=== PATIENT | male | born 1960 | race Caucasian/White ===

== ENCOUNTER 2019-01-16 17:04 | Emergency (ER) | payer BC ==
--- OUTSIDE RECORDS SUMMARY | 2019-01-16 17:14 | XMS REPORT | Continuity of Care Document ---
:1960 External Reference #:[id number] Author Name Xavier Cruz M.D. Address [address] [facility] [place] [address] Care Team Providers Name Role Phone Marjorie Yun MD Care Team Information Shells Inspector Unavailable Marjorie Yun MD Primary Care Physician Unavailable Payers Date Identification Numbers Payment Provider Subscriber Policy Number: [id number] [facility] José Miguel Sosa III PayID: [id number] [address] [address] [place] [address] Expires: 2016 Policy Number: [id number] [facility] Brenda Sosa PayID: [id number] [address] [place] [address] PayID: [id number] [facility] José Miguel Sosa III Psych/RCF/Eye/[facility] [address] [place] [address] Effective: 2000 Policy Number: [id number] Cornell Sosa Expires: 2013 Group Number: [id number] [address] [address] Group Name: [facility] [place] [address] PayID: [id number] Advance Directives Description No Information Available Problems Date Description Provider Status Onset: 08/04/2017 Raised prostate specific antigen Navjot Sterling M.D. Active Onset: 09/05/2017 Malignant tumor of prostate Navjot Sterling M.D. Active Onset: 12/06/2017 Stress incontinence after Navjot Sterling M.D. Active prostatectomy Onset: 12/06/2017 Impotence of organic origin Navjot Sterling M.D. 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 Right-handed Tobacco Use Start: Unknown Current Cigarette Smoker 1 1/2 Packs Daily Cigarette Use Pack Years - 30 ETOH Use Currently consumes alcohol Tobacco Use Start: Unknown Yes Recreational Drug Use Denies Drug Use Tobacco Use Start: Unknown Patient is a current 1 1/2 ppd x 30 yrs smoker, smokes every day Smoking Status Reviewed: 07/21/17 Patient is a current 1 1/2 ppd x 30 yrs smoker, smokes every day Allergies, Adverse Reactions, Alerts Date Description Reaction Status Severity Comments 10/01/2010 Bee Sting Active 10/01/2010 Flu Virus Vaccine Active cellulitis 06/23/2010 NKDA Inactive Medications Medication Date Status Form Strength Qnty SIG Indications Ordering Provider Metformin HCL Active Tablets 500mg 60tab 1 po bid Unknown /0000 s Losartan Active Tablets 100mg Once a day Unknown Potassium /0000 Hydrochlorothiazi Active Tablets 25mg Once a day Unknown de /0000 Amitriptyline HCL 00 Active Tablets 100mg 1 by mouth Unknown /0000 every night at bedtime Atorvastatin Active Tablets 20mg 1 by mouth Unknown Calcium /0000 every day Sulfasalazine Active Tablets 500mg Unknown /0000 Omeprazole [address] 20mg 1 by mouth Unknown /0000 every day Sildenafil 01/10 Hx Tablets 50mg 14tab 1 to 2 N52.31 Nelson, Citrate s pills as Aleena Morfin M.D. 11/27 intercours e 12 Hour 10/26 Hx Tablets ER 120mg ;.'isa, Decongestant 12HR Aleena Dyson M.D. 10/26 vira vira cheney Ciprofloxacin HCL 08/04 Hx Tablets 500mg 6tabs 1 by mouth R97.20 Nelson twice a Navjot, - day, start M.D. before procedure Enema 08/04 Hx Enema 7-19GM/11 133ml Morning of R97.20 Nelson 8ML procedure. Navjot, - M.D. 08/29 Cyclobenzaprine 01/16 Hx Tablets 10mg 40tab 1 by mouth [place], s three Teodoro, - times a M.D. needed for muscle spasms. use caution with alcohol, driving, working [place] Hx Capsules ER 250mg 2 tabs qid / - 01/16 Lyrica Hx Capsules 150mg po tid - 01/16 Tramadol HCL Hx Unknown / - 01/[address] 40mg 30cap 1 po qd Unknown / s - 01/16 Cozaar Hx Tablets 100mg 1 po qd - 01/16 Baby Aspirin Hx Chewtabs 81mg 1 po qd / - 12/14 Promethazine-Code Hx Syrup 6.25-10mg Unknown ine /0000 /5ML - 08/25 Bactrim DS Hx Tablets 800-160mg / - 08/25 Magnesium Oxide Hx Capsules 400mg Once a day - 11/27 Debrox Hx Solution 6.5% 5 drops Unknown / twice a - day x 4 10/26 days in ear only Proair HFA Hx Aerosol 108(90Bas As needed Unknown /0000 e) - mcg/Act 12/14 Duexis Hx Tablets 800-26.6m Unknown / g - 10/26 Simvastatin 00 Hx Tablets 40mg Once a day - 12/[address] 40mg Once a day / - 11/27 Amitriptyline HCL Hx Tablets 100mg Once a day Unknown / - 01/10 Azulfidine Hx Tablets 500mg Once a day - 11/27 Calcium 600+D Hx Tablets 600-400mg Unknown -Unit - 12/14 Fluticasone Hx Suspension 50mcg/Act 1 spray to Unknown each nare - every day 12/14 Benzonatate Hx Capsules 200mg 1 tab by mouth - three 12/14 times day Medications Administered in Office Medication Date Status Form Strength Qnty SIG Indications Ordering Provider Methylprednisolone 01/16 Administered Injection braxton Osorio Keila (Depomedrol) 80mg S., RPA injection Immunizations Description No Information Available Vital Signs Date Vital Result Comment 01/04/2019 10:31am BP Systolic 151 mmHg BP Diastolic 84 mmHg Heart Rate 64 /min Height 72 inches 6'0" Weight 209.00 lb BMI (Body Mass Index) 28.3 kg/m2 BSA (Body Surface Area) 2.17 m2 [place] body weight in kilograms 81 kg O2 % BldC Oximetry 96 % 12/14/2018 1:34pm BP Systolic 141 mmHg BP Diastolic 77 mmHg Heart Rate 68 /min Height 72 inches 6'0" Weight 213.00 lb BMI (Body Mass Index) 28.9 kg/m2 BSA (Body Surface Area) 2.19 m2 [place] body weight in kilograms 81 kg O2 % BldC Oximetry 95 % 04/18/2018 3:25pm BP Systolic 122 mmHg BP Diastolic 83 mmHg Body Temperature 98.0 F Heart Rate 47 /min Respiratory Rate 18 /min Height 72 inches 6'0" Weight 202.00 lb BMI (Body Mass Index) 27.4 kg/m2 BSA (Body Surface Area) 2.14 m2 [place] body weight in kilograms 81 kg O2 % BldC Oximetry 100 % Pain Level 0 01/10/2018 3:52pm BP Systolic 118 mmHg BP Diastolic 80 mmHg Body Temperature 97.7 F Heart Rate 63 /min Respiratory Rate 18 /min Height 72 inches 6'0" Weight 213.38 lb BMI (Body Mass Index) 28.9 kg/m2 BSA (Body Surface Area) 2.19 m2 [place] body weight in kilograms 81 kg O2 % BldC Oximetry 95 % Pain Level 6 Abd pain 12/06/2017 11:03am BP Systolic 126 mmHg BP Diastolic 77 mmHg Body Temperature 97.8 F Heart Rate 62 /min Respiratory Rate 18 /min Height 72 inches 6'0" Weight 217.00 lb BMI (Body Mass Index) 29.4 kg/m2 BSA (Body Surface Area) 2.21 m2 [place] body weight in kilograms 81 kg O2 % BldC Oximetry 97 % Pain Level 0 11/09/2017 8:51am BP Systolic 128 mmHg BP Diastolic 85 mmHg Body Temperature 96.9 F Heart Rate 84 /min Respiratory Rate 18 /min Height 72 inches 6'0" Weight 206.00 lb BMI (Body Mass Index) 27.9 kg/m2 BSA (Body Surface Area) 2.16 m2 [place] body weight in kilograms 81 kg O2 % BldC Oximetry 98 % Pain Level 5 Discomfort from hawkins catheter 10/26/2017 1:44pm Height 72 inches 6'0" Weight 201.38 lb BMI (Body Mass Index) 27.3 kg/m2 BSA (Body Surface Area) 2.14 m2 [place] body weight in kilograms 81 kg 10/26/2017 1:33pm BP Systolic 126 mmHg BP Diastolic 79 mmHg Body Temperature 97.8 F 36.6C Heart Rate 76 /min Respiratory Rate 18 /min Height 72 inches 6'0" [place] body weight in kilograms 81 kg O2 % BldC Oximetry 97 % Pain Level 0 09/05/2017 3:53pm BP Systolic 123 mmHg BP Diastolic 73 mmHg Body Temperature 96.9 F Heart Rate 65 /min Respiratory Rate 16 /min Height 72 inches 6'0" Weight 202.38 lb BMI (Body Mass Index) 27.4 kg/m2 BSA (Body Surface Area) 2.14 m2 [place] body weight in kilograms 81 kg O2 % BldC Oximetry 97 % Pain Level 0 08/29/2017 12:18pm BP Systolic 132 mmHg BP Diastolic 87 mmHg Body Temperature 97.2 F Heart Rate 65 /min Respiratory Rate 16 /min O2 % BldC Oximetry 97 % Pain Level 0 08/25/2017 4:01pm BP Systolic 120 mmHg BP Diastolic 77 mmHg Heart Rate 102 /min Respiratory Rate 18 /min O2 % BldC Oximetry 95 % 08/25/2017 3:25pm BP Systolic 124 mmHg BP Diastolic 71 mmHg Body Temperature 97.7 F Heart Rate 62 /min Respiratory Rate 18 /min Height 72.5 inches 6'0.50" Weight 201.50 lb BMI (Body Mass Index) 26.9 kg/m2 BSA (Body Surface Area) 2.15 m2 [place] body weight in kilograms 82 kg O2 % BldC Oximetry 98 % Pain Level 6 Left shoulder 08/04/2017 2:09pm BP Systolic 136 mmHg BP Diastolic 75 mmHg Body Temperature 97.0 F 36.1 Heart Rate 69 /min Respiratory Rate 22 /min Height 72.5 inches 6'0.50" Weight 204.00 lb BMI (Body Mass Index) 27.3 kg/m2 BSA (Body Surface Area) 2.16 m2 [place] body weight in kilograms 82 kg O2 % BldC Oximetry 94 % 01/16/2015 10:29am BP Systolic Sitting Right Arm 149 mmHg BP Diastolic Sitting Right Arm 83 mmHg Heart Rate 81 /min Height 72.5 inches 6'0.50" Weight 240.00 lb BMI (Body Mass Index) 32.1 kg/m2 BSA (Body Surface Area) 2.31 m2 05/14/2010 9:41am Height 72 inches 6'0" Weight 240.00 lb BMI (Body Mass Index) 32.5 kg/m2 Results Test Date Facility Test Result H/L Range Note Laboratory test 04/18/2018 [facility] Prostate < 0.01 ng/mL < 4.0 1, [address] [place] [address] Antigen [phone] Laboratory test 12/06/2017 [facility] Prostate < 0.01 ng/mL < 4.0 3, [address] [place] [address] Antigen [phone] Laboratory test 11/11/2017 [facility] Prostate 0.03 ng/mL < 4.0 [address] [place] [address] Antigen [phone] Laboratory test 10/14/2017 [facility] Glucose BldC 114 mg/dL High 70- 105 finding Glucomtr-mCnc Laboratory test 10/14/2017 [facility] Glucose BldC 126 mg/dL High 70- 105 finding Glucomtr-mCnc Complete Blood 10/14/2017 [facility] WBC Num Bld 9.1 10*3/uL 4-10 Count Auto RBC Num Bld Auto 4.42 10*6/uL Low 4.6-6.1 Hgb Bld-mCnc 14.4 g/dL 13.5-18 Hct VFr Bld Auto 41.7 % 41-53 MCV RBC Auto 94.4 fL 80-96 MCH RBC Qn Auto 32.6 pg 27-33 MCHC RBC Auto-mCnc 34.5 g/dL 32.0-36.0 RDW RBC Auto-Rto 13.4 % 11.5-14.5 Platelet Num Bld Auto 177 10*3/uL 150-400 Basic Metabolic Panel 10/14/2017 [facility] Hco3 Ser-sCnc 26 mmol/L 22 -29 Chloride SerPl-sCnc 100 mmol/L 98-107 Creat SerPl-mCnc 0.71 mg/dL 0.5-1.2 Glucose SerPl-mCnc 140 mg/dL 70-140 Potassium SerPl-sCnc 4.7 mmol/L 3.5-5.1 Sodium SerPl-sCnc 135 mmol/L Low 136-145 BUN SerPl-mCnc 11 mg/dL 6-20 Anion Gap3 SerPl-sCnc 9 mmol/L 8-15 Osmolality SerPl Calc 282 mosm/kg 275-300 Creat/Urea nit SerPl 15 Calcium SerPl-mCnc 8.6 mg/dL 8.6-10.0 GFR/Bsa pred.non black SerPl MDRD-ArVRat >90 mL/min/1.73m2 >60 GFR/Bsa pred.black SerPl MDRD-ArVRat >90 mL/min/1.73m2 >60 Laboratory test 10/14/2017 [facility] Magnesium 1.8 mg/dL 1.6-2.6 finding SerPl-mCnc Phosphate SerPl-mCnc 4.0 mg/dL 2.5-4.5 Creat Fld-mCnc 0.7 mg/dL Laboratory test 10/14/2017 [facility] Glucose BldC 143 mg/dL High 70- 105 finding Glucomtr-mCnc Laboratory test 10/13/2017 [facility] Glucose BldC 107 mg/dL High 70- 105 finding Glucomtr-mCnc Surgical Tissue 10/13/2017 [facility] Surgical Pathology Surgical 6 Patholo <SEE NOTE> Laboratory test 10/13/2017 [facility] Magnesium 1.8 mg/dL 1.6-2.6 finding SerPl-mCnc Phosphate SerPl-mCnc 4.7 mg/dL High 2.7-4.5 Basic Metabolic Panel 10/13/2017 [facility] Hco3 Ser-sCnc 21 mmol/L Low 22-29 Chloride SerPl-sCnc 99 mmol/L 96-108 Creat SerPl-mCnc 1.03 mg/dL 0.5-1.2 Glucose SerPl-mCnc 180 mg/dL High 65-110 Potassium SerPl-sCnc 4.8 mmol/L 3.3-5.1 Sodium SerPl-sCnc 137 mmol/L 133-145 BUN SerPl-mCnc 14 mg/dL 6-20 Anion Gap3 SerPl-sCnc 17 mmol/L High 8-15 Osmolality SerPl Calc 289 mosm/kg 275-300 Creat/Urea nit SerPl 14 Calcium SerPl-mCnc 8.8 mg/dL 8.4-10.2 GFR/Bsa pred.non black SerPl MDRD-ArVRat 79 mL/min/1.73m2 >60 GFR/Bsa pred.black SerPl MDRD-ArVRat >90 mL/min/1.73m2 >60 CBC + Diff, Plat 10/13/2017 [facility] WBC Num Bld Auto 14.5 10*3/uL High 4-10 Count RBC Num Bld Auto 4.71 10*6/uL 4.6-6.1 Hgb Bld-mCnc 15.2 g/dL 13.5-18 Hct VFr Bld Auto 44.5 % 41-53 MCV RBC Auto 94.4 fL 80-96 MCH RBC Qn Auto 32.3 pg 27-33 MCHC RBC Auto-mCnc 34.3 g/dL 32.0-36.0 RDW RBC Auto-Rto 13.4 % 11.5-14.5 Platelet Num Bld Auto 198 10*3/uL 150-400 Differential method Bld Automated Diff Neutrophils/leuk NFr Bld Auto 88 % High 33-73 Lymphocytes/leuk NFr Bld Auto 8 % Low 13-52 Monocytes/leuk NFr Bld Auto 4 % 0-11 Eosinophil/leuk NFr Bld Auto 0 % 0-5 Basophils/leuk NFr Bld Auto 0 % 0-2 Neutrophils Num Bld Auto 12.69 10*3/uL High 1.8-7.0 Lymphocytes Num Bld Auto 1.15 10*3/uL Low 1.2-4.0 Monocytes Num Bld Auto 0.57 10*3/uL 0-0.8 Eosinophil Num Bld Auto 0.03 10*3/uL 0-0.5 Basophils Num Bld Auto 0.06 10*3/uL 0-0.2 nRBC/100 WBC Bld Auto-Rto 0 /100{WBCs} 0-0 Laboratory test 10/13/2017 [facility] Glucose BldC 224 mg/dL High 70- 105 finding Glucomtr-mCnc Laboratory test 10/13/2017 [facility] Glucose BldC 193 mg/dL High 70- 105 finding Glucomtr-mCnc Urin Clean Catch 09/28/2017 [facility] Microorganism XXX No growth 7 Cul Cult (quali <SEE NOTE> Urinalysis 09/28/2017 [facility] Color Ur Yellow Complete Clarity Ur Clear Sp Gr Ur Refract.auto 1.006 1.003-1.030 pH Ur Strip.auto 5.0 5.0-8.0 Prot Ur Strip.auto-mCnc Negative mg/dL <10 Glucose Ur Strip.auto-mCnc Negative mg/dL Negative Ketones Ur Strip.auto-mCnc Negative mg/dL Negative Bilirub Ur Ql Strip.auto Negative Negative Hgb Ur Ql Strip.auto Negative Negative Leukocyte esterase Ur Ql Strip.auto Negative Joesph/uL Negative Nitrite Ur Ql Strip.auto Negative Negative WBC Num/area UrnS Auto 1 /HPF 0-5 Type And Screen 09/28/2017 [facility] Abo + Rh Bld A POS 8 Bld gp Ab Scn SerPl Ql NEG Basic Metabolic Panel 09/28/2017 [facility] Hco3 Ser-sCnc 24 mmol/L 22 -29 Chloride SerPl-sCnc 95 mmol/L Low 96-108 Creat SerPl-mCnc 0.86 mg/dL 0.5-1.2 Glucose SerPl-mCnc 125 mg/dL High 65-110 Potassium SerPl-sCnc 3.9 mmol/L 3.3-5.1 Sodium SerPl-sCnc 133 mmol/L 133-145 BUN SerPl-mCnc 15 mg/dL 6-20 Anion Gap3 SerPl-sCnc 14 mmol/L 8-15 Osmolality SerPl Calc 278 mosm/kg 275-300 Creat/Urea nit SerPl 17 Calcium SerPl-mCnc 10.3 mg/dL High 8.4-10.2 GFR/Bsa pred.non black SerPl MDRD-ArVRat >90 mL/min/1.73m2 >60 GFR/Bsa pred.black SerPl MDRD-ArVRat >90 mL/min/1.73m2 >60 Prothrombin Time 09/28/2017 [facility] Prothrombin time 11.6 s Low 12.5 -14.9 Inr PPP 0.85 Laboratory test 09/28/2017 [facility] aPTT Bld 24.9 s 24.0-34.0 finding Complete Blood Count 09/28/2017 [facility] WBC Num Bld 8.4 10*3/uL 4- 10 Auto RBC Num Bld Auto 5.58 10*6/uL 4.6-6.1 Hgb Bld-mCnc 18.0 g/dL 13.5-18 Hct VFr Bld Auto 51.6 % 41-53 MCV RBC Auto 92.4 fL 80-96 MCH RBC Qn Auto 32.2 pg 27-33 MCHC RBC Auto-mCnc 34.8 g/dL 32.0-36.0 RDW RBC Auto-Rto 13.4 % 11.5-14.5 Platelet Num Bld Auto 236 10*3/uL 150-400 Surgical 09/06/2017 [facility] Surgical Surgical 9 Pathology Consult Pathology Patholo <SEE Consult NOTE> Laboratory test 08/06/2017 [facility] Prostate 9.90 ng/mL < 4.0 10, [address] [place] [address] Antigen [phone] 1 C61 N52.31 N39.3 2 THIS ASSAY IS NOT INTENDED A CANCER SCREENING TEST The concentration of PSA in a given specimen, determined with assays from different manufacturers, can vary due to differences in assay methods and reagent specificity. Values obtained from different assay methods cannot be used interchangeably. Method: Siemens [employer] [place] Chemiluminescent immunoassay. 3 C61 4 THIS ASSAY IS NOT INTENDED A CANCER SCREENING TEST The concentration of PSA in a given specimen, determined with assays from different manufacturers, can vary due to differences in assay methods and reagent specificity. Values obtained from different assay methods cannot be used interchangeably. Method: Siemens Dimension [place] Chemiluminescent immunoassay. 5 THIS ASSAY IS NOT INTENDED A CANCER SCREENING TEST The concentration of PSA in a given specimen, determined with assays from different manufacturers, can vary due to differences in assay methods and reagent specificity. Values obtained from different assay methods cannot be used interchangeably. Method: Siemens Dimension [place] Chemiluminescent immunoassay. 6 Surgical Pathology Report * Amended * Name: JOSÉ MIGUEL SOSA Collection Date: 10/13/2017 00:00 Received Date: 10/13/2017 15:48 Physician(s): NAVJOT STERLING MAHMOUD Specimen(s) Received A: Bladder margin F.S. B: Apical prostatic margin F.S. C: Anterior prostatic fat D: Left seminal vesicle and vas deferens E: Right obturator lymph nodes F: Right external iliac artery G: Left obturator H: Prostate with seminal vesicles Clinical History Prostate cancer. Diagnosis A) SOFT TISSUE, BLADDER MARGIN, EXCISION: NEGATIVE FOR TUMOR. B) SOFT TISSUE, APICAL PROSTATIC MARGIN, EXCISION: NEGATIVE FOR TUMOR. C) SOFT TISSUE, ANTERIOR PROSTATIC FAT, EXCISION: NEGATIVE FOR TUMOR. D) LEFT SEMINAL VESICLE AND VAS DEFERENS, EXCISION: NEGATIVE FOR TUMOR. E) LYMPH NODES (3), RIGHT OBTURATOR, EXCISION: NEGATIVE FOR TUMOR. F) LYMPH NODES (3), RIGHT EXTERNAL ILIAC, EXCISION: NEGATIVE FOR TUMOR. G) LYMPH NODES (5), LEFT OBTURATOR, EXCISION: NEGATIVE FOR TUMOR. H) PROSTATE, PROSTATECTOMY: ADENOCARCINOMA BETTY SCORE (GRADE GROUP): 4+3=7, grade group 3. SITE OF MAIN TUMOR: Left anterior. SIZE OF LARGEST FOCUS: 0.8 cm. PERCENT OF PROSTATE INVOLVED BY TUMOR: Approximately 25%. BILATERAL TUMOR: Present. EXTRACAPSULAR EXTENSION: Not identified. BLADDER NECK INVASION: Not identified. MARGINS: Positive SITE AND EXTENT OF POSITIVE MARGIN: Positive focus less than 1MM, right apex SEMINAL VESICLE INVOLVEMENT: Not identified. PERINEURAL INVASION: Present. LYMPHATIC SPACE INVASION: Not identified. pT2c N0. /deonna Olivia Young MD ; Resident Pathologist Electronically Signed By Venkatesh Estrada MD,PhD, Attending Pathologist 11/01/2017 13:19:15 The attending pathologist named above attests that he/she has personally reviewed the relevant preparation(s) for the specimen, performed microscopic examination when indicated, and rendered the final diagnosis. Unless 'gross-only' is specified, the final diagnosis is based on a microscopic examination of sales representative meats sections of tissue. Intraoperative Consultation FSA) Bladder margin, biopsy: Fibromuscular tissue no prostatic glands identified. FSB) Apical prostatic margin, biopsy: Focal prostatic glands present. Per Dr. Hunt on 10/13/2017/ //[facility] [place] The attending pathologist named above attests that he/she has personally examined the frozen section preparation and rendered the diagnosis. Gross Description The specimen is received in eight parts. Part A is received fresh for frozen labeled with the patient's name "José Miguel Sosa" and "bladder margin check for prostate gland". It consists of a heavily cauterized fragment of soft tissue measuring 0.7 x 0.4 x 0.3 cm. The specimen is entirely submitted for frozen as FSA1 and the frozen remainder is submitted in cassettes A1. Part B is received fresh for frozen labeled with the patient's name "José Miguel Sosa" and "apical margin looking for prostatic glands". It consists of a fragment of red soft tissue measuring 0.3 x 0.3 x 0.2 cm. The specimen is entirely submitted for frozen as FSB1 and the frozen remainder is submitted as FSB1 and the frozen remainder in submitted in cassettes B1. /[facility] [place] Parts C-H were received on 10/14/2017. Part C is received in formalin labeled with the patient's name "José Miguel Sosa" and "anterior prostatic fat". It consists of a portion of yellow lobulated soft tissue measuring 2.5 x 2.0 x 0.4 cm. The specimen is totally submitted in one cassette. Part D is received in formalin labeled with the patient's name "José Miguel Sosa" and "left seminal vesicle and vas". It consists of a andrews lobulated seminal vesicle measuring 4.0 x 1.5 x 0.8 cm with an attached segment of tubular tissue, vas deferens measuring 5.8 x 0.5 cm. Cut surfaces are unremarkable. In addition a segment of tubular tissue is received measuring 3.0 x 0.5 cm. Customer Success Advocate sections are submitted to include a cross section of each tubular structure and sales representative meats of seminal vesicle in one cassette. Part E is received in formalin labeled with the patient's name "José Miguel Sosa" and "right obturator lymph node". It consists of multiple fragments of yellow lobulated soft tissue measuring 3.6 x 3.0 x 1.0 cm. Three possible nodes are identified measuring up to 2.8 cm in greatest dimension. The largest is bisected and a rubbery cut surface. The marybeth tissue is entirely submitted as follows: E1 -two whole probable nodes E2 -one entire bisected node Part F is received in formalin labeled with the patient's name "José Miguel Sosa" and "right external iliac artery". It consists of multiple fragments of yellow-red soft tissue measuring 4.0 x 3.0 x 0.8 cm. Three probable nodes are identified measuring up to 1.5 cm in greatest dimension. The marybeth tissue is entirely submitted as follows: F1 -two whole nodes F2 -one bisected node Part G is received in formalin labeled with the patient's name "José Miguel Sosa" and "left obturator". It consists of an aggregate of yellow lobulated soft tissue measuring 4.2 x 3.0 x 1.0 cm. Multiple possible nodes are identified that measure up to 3.0 cm in greatest dimension. The marybeth tissue is entirely submitted as follows: G1 -multiple whole possible nodes G2,3 -one entire node Part H is received in formalin labeled with the patient's name "José Miguel Ssoa" and "prostate with seminal vesicle". It consists of a prostate measuring 5.0 x 4.0 x 3.7 cm and weighing 37.0 grams. There is a single seminal vesicle attached to the prostate measuring 3.5 x 1.0 cm. The surfaces are moderately cauterized and shaggy. The right prostate, the left blue, and the anterior green. The specimen is serially sectioned to reveal a pink rubbery symmetric cut surface. There is a single vague area of pallor along the anterior middle aspect that measures approximately 1.0 cm in greatest dimension. The seminal vesicle has a lobulated, otherwise unremarkable cut surface. A vas deferens is not identified. Customer Success Advocate sections are submitted as follows: H1 -right apex H2 -left apex H3,4 -bisected level 1 (H3 right, H4 left) H5-8 quadrisected level 2 (H5 right anterior, H6 right posterior, H7 left anterior, H8 - left posterior; H5 and H7 to include area of pallor) H9-12 -quadrisected level 3 (H9 right anterior, H10 right posterior, H11 left anterior, H12 - left posterior; H9 and H11 to include remainder of area of pallor) H13-16 -quadrisected level 4 (H13 right anterior, H14 right posterior, H15 left anterior, H16 - left posterior) H17-20 -quadrisected level 5 (H17 right anterior, H18 right posterior, H19 left anterior, H20 - left posterior) H21-24 -quadrisected level 6 (H21 right anterior, H22 right posterior, H23 left anterior, H24 - left posterior) H25,26 -right base H27,28 -left base H29 -right posterior prostate with seminal vesicle H30 -left posterior prostate ND/pws Amendments Amended: 11/01/2017 by Kacie May Reason: Typographical Error D) NEAGTIVE FOR TUMOR. Change to: D) NEGATIVE FOR TUMOR. E) NEAGTIVE FOR TUMOR. Change to: E) NEGATIVE FOR TUMOR. H) BLADDER NECK INVASION: . Change to: H) BLADDER NECK INVASION: Not identified. /[facility] [place] Previous Signout Date: 10/18/2017 This report may include one or more immunohistochemical stain results that use analyte specific reagents. All positive and negative controls have been reviewed by the attending pathologist and are satisfactory. The tests were developed and their performance characteristics determined by [facility] Pathology department. They have not been cleared or approved by the [place] Food and Drug Administration. The FDA has determined that such clearance or approval is not necessary. 7 No growth (qualifier value) 8 DOS 10/13 9 Surgical Pathology Report Name: JOSÉ MIGUEL LE Collection Date: 09/06/2017 00:00 Received Date: 09/06/2017 15:05 Physician(s): NAVJOT STERLING MAHMOUD Copy To: CHERYL PAN Specimen(s) Received A: Slides received for consultation Clinical History Elevated PSA, slides for second opinion. Diagnosis OUTSIDE CASE [facility] [place] [id number], PARTS A - F, 08/29/2017. A) PROSTATE, LEFT APEX, CORE BIOPSY: ADENOCARCINOMA, BETTY SCORE 6 (3 + 3), INVOLVING APPROXIMATELY 15% OF ONE OF TWO CORES (GRADE GROUP 1). B) PROSTATE, LEFT MID, CORE BIOPSY: ADENOCARCINOMA, BETTY SCORE 6 (3 + 3), INVOLVING APPROXIMATELY 30% OF ONE OF TWO CORES (GRADE GROUP 1). C) PROSTATE, LEFT BASE, CORE BIOPSY: BENIGN PROSTATIC TISSUE. D) PROSTATE, RIGHT APEX, CORE BIOPSY: BENIGN PROSTATIC TISSUE. E) PROSTATE, RIGHT MID, CORE BIOSPY: ADENOCARCINOMA, BETTY SCORE 7 (3 + 4), INVOLVING APPROXIMATELY 20% OF ONE OF TWO CORES (GRADE GROUP 2, 10% PATTERN 4). F) PROSTATE, RIGHT BASE, CORE BIOPSY: ADENOCARCINOMA, BETTY SCORE 7 (3 + 4), INVOLVING APPROXIMATELY 60% OF ONE OF TWO CORES, (GRADE GROUP 2, 10% PATTERN 4). /deonna Electronically Signed By Luis Alfredo Holley M.D., Attending Pathologist 09/08/2017 10:21:42 Unless 'gross-only' is specified, the final diagnosis is based on a microscopic examination of sales representative meats sections of tissue. Gross Description Received from [facility] in [place], [place], are 12 H and E stained slides labeled [id number], with the corresponding pathology report. /jrs This report may include one or more immunohistochemical stain results that use analyte specific reagents. All positive and negative controls have been reviewed by the attending pathologist and are satisfactory. The tests were developed and their performance characteristics determined by [facility] Pathology department. They have not been cleared or approved by the US Food and Drug Administration. The FDA has determined that such clearance or approval is not necessary. 10 R97.20 11 THIS ASSAY IS NOT INTENDED A CANCER SCREENING TEST The concentration of PSA in a given specimen, determined with assays from different manufacturers, can vary due to differences in assay methods and reagent specificity. Values obtained from different assay methods cannot be used interchangeably. Method: Vyter[employer] [place] Chemiluminescent immunoassay. Procedures Date Code Description Status 12/26/2018 17275 Implant Of Mesh Or Prothesis For Incisional Hernia Repair Completed 12/26/2018 29688 Repair inisial incisional or ventral hernia; reducible Completed 12/06/2017 44375 Measurement Post Voiding Residual Urine By Completed Ultrasound,Non-Imaging 12/06/2017 57459 complex uroflowmetry electronic Completed 11/09/2017 81534 Irrigation Of Bladder Completed 10/26/2017 34778 Irrigation Of Bladder Completed 09/05/2017 77283 Measurement Post Voiding Residual Urine By Completed Ultrasound,Non-Imaging 08/29/2017 10843 Biopsy Prostate Needle Or Punch Completed 07/21/2017 22590 Eye Exam New Patient Comprehensive Completed 04/21/2016 32589 Bronchospasm Provocation Evaluation Multi Spirometric Completed Determinati 04/21/2016 40022 Spirometry Completed 02/08/2016 90875 EKG Interpretation And Report Only Completed 01/16/2015 89907 xray spine cervical min 4 views Completed 01/16/2015 50166 xray spine cervical min 4 views Completed 01/16/2015 25723 Asp./Injection major joint Completed 10/27/2012 77221 Spinal Puncture Lumbar Diagnostic Completed 10/07/2010 87322 EKG Interpretation And Report Only Completed 09/18/2008 75009 Doppler ECHO Color Flow Mapping Completed 09/18/2008 51839 Doppler Echocardiogram Complete Completed 09/18/2008 54798 Echocariogram 2D Complete Completed 01/18/2008 79604 Doppler ECHO Color Flow Mapping Completed 01/18/2008 74192 Doppler Echocardiogram Complete Completed 01/18/2008 41205 Echocariogram 2D Complete Completed Encounters Type Date Location Provider Dx Diagnosis Office Visit 12/14/2018 Surgical Office Blanca Cruz3.2 Incisional hernia 1:30p Christopher H., without obstruction M.D. 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 723.1 Cervicalgia Office Visit 11/05/2010 3:00p Orthopaedic Office Conor Alberto 726.10 Bursae & Tendon MD Guerita, FACS Disorders Shoulder Region Unspec 727.61 Ruptured Rotator Cuff Complete Office Visit 10/01/2010 Orthopaedic Dolly 840.0 Sprains & Strains 3:15p Office Conor Dexter MD, Acromioclavicular FACS (Joint)(Ligament) 831.04 Dislocation Acromioclavicular (Joint) Closed 715.11 Osteoarthrosis Localized Prim Shoulder Region 840.6 Sprains & Strains Supraspinatus (Muscle)(Tendon) Office Visit 08/06/2010 2:30p Orthopaedic Office Conor Alberto 840.4 SprSaman MD, FACS Strains Rotator Cuff (Capsule) 831.04 Dislocation Acromioclavicular (Joint) Closed 715.11 Osteoarthrosis Localized Prim Shoulder Region 840.9 Sprains & Strains Shoulder & Upper Arm Unspec Office Visit 06/25/2010 1:45p Orthopaedic Office Conor Alberto 840.9 Rocky MD, FACS Strains Shoulder & Upper Arm Unspec 831.04 Dislocation Acromioclavicular (Joint) Closed 923.00 Contusion Shoulder Region Office Visit 05/14/2010 Orthopaedic Dolly, 831.04 Dislocation 1:15p Office Conor Dexter MD, Acromioclavicular FACS (Joint) Closed 840.9 Sprains & Strains Shoulder & Upper Arm Unspec 844.1 Sprains & Strains Knee Medial Collateral Ligament E881.0 Fall From Ladder Plan of Treatment Future Appointment(s):01/30/2019 9:30 am - Arnulfo Puri MD at [facility]01/04/2019 - Xavier Cruz M.D.K43.2 Incisional hernia without obstruction or gangreneComments:The experience he reports is within what would be expected with normal recovery. Hernia clearly addressed. Some discomfort understandably present at the skin incision site. Reassurance offered. He is using appropriate protective measures (Band-Aid and the like) which should be continued on an as-needed basis. Questions again addressed to his satisfaction. He is comfortable with the open ended follow-up offered.
[2019-01-16 17:44] VITALS: BP 134/78
[2019-01-16] MEDS ORDERED: Ipratropium 0.5MG/2.5ML NEB* 0.5 MG/2.5 ML NEB.SOLN INH ONE (17:54)
[2019-01-16] MEDS ORDERED: Albuterol 2.5 MG/3 ML NEB.SOL* (0.083%) INH ONE (17:54)
--- NOTE | 2019-01-16 18:20 | UC ---
Respiratory Complaint HPI - HPI Summary HPI Summary: 58 yo male with a 2 week hx of cough/wheeaing and chest tightness no CP no L EXTR edema no n/v/d - History of Current Complaint Chief Complaint: UCGeneralIllness Stated Complaint: COUGH/WHEEZING/HX ASTHMA Time Seen by Provider: 01/16/19 17:37 Hx Obtained From: Patient Onset/Duration: Gradual Onset, Lasting Weeks Timing: Constant Severity Initially: Mild Severity Currently: Moderate Pain Intensity: 0 Pain Scale Used: 0-10 Numeric Character: Cough: Productive - at times Aggravating Factors: Deep Breaths, Recumbent Position Alleviating Factors: Nothing Associated Signs And Symptoms: Positive: Wheezing. Negative: Dyspnea, Fever, Chills, Pleuritic Chest Pain, Dizziness, Calf Pain, Calf Swelling, Nasal Congestion, Hoarseness, Sinus Discomfort - Allergies/Home Medications Allergies/Adverse Reactions: Allergies Allergy/AdvReac Type Severity Reaction Status Date / Time bee venom protein (honey bee) Allergy Rash Verified 01/16/19 17:41 Influenza Virus Vaccines Allergy Swelling Verified 01/16/19 17:41 Home Medications: Home Medications Blood Pressure Med 1 each PO DAILY 01/16/19 [History] Colitis Med 1 each PO DAILY 01/16/19 [History] D-Methorphan/PE/Acetaminophen [Theraflu Expressmax Day Caplet] 1 each PO Q6H [History Confirmed 01/16/19] Metformin HCl 500 mg PO BID 01/16/19 [History Confirmed 01/16/19] Omeprazole 20 mg PO DAILY 01/16/19 [History Confirmed 01/16/19] hydroCHLOROthiazide [Hydrochlorothiazide] 12.5 mg PO DAILY 01/16/19 [History Confirmed 01/16/19] PMH/Surg Hx/FS Hx/Imm Hx Previously Healthy: Yes Cardiovascular History: Hypertension Respiratory History: Asthma, Bronchitis, Pneumonia - Surgical History Surgical History: Yes Surgery Procedure, Year, and Place: PROSTATE REMOVED. HERNIA - Family History Known Family History: Positive: Hypertension - Social History Alcohol Use: Occasionally Substance Use Type: None Smoking Status (MU): Heavy Every Day Tobacco Smoker Length of Time of Smoking/Using Tobacco: 1 1/2 PPD X 30+YRS Household Exposure Type: Cigarettes Review of Systems All Other Systems Reviewed And Are Negative: Yes Constitutional: Positive: Negative Skin: Positive: Negative Eyes: Positive: Negative ENT: Positive: Negative Respiratory: Positive: Cough Cardiovascular: Positive: Negative Gastrointestinal: Positive: Negative Genitourinary: Positive: Negative Motor: Positive: Negative Neurovascular: Positive: Negative Musculoskeletal: Positive: Negative Neurological: Positive: Negative Psychological: Positive: Negative Physical Exam Triage Information Reviewed: Yes Appearance: Well-Appearing, No Pain Distress, Well-Nourished Vital Signs: Initial Vital Signs Temp 99.5 F 01/16/19 17:38 Pulse 88 01/16/19 17:38 Resp 24 01/16/19 17:38 BP 134/78 01/16/19 17:38 Pulse Ox 95 01/16/19 17:38 Vital Signs Reviewed: Yes Eyes: Positive: Conjunctiva Clear ENT: Positive: Hearing grossly normal. Negative: Nasal congestion, Nasal drainage, Trismus, Muffled voice, Dental tenderness Neck: Positive: Supple, Nontender, No Lymphadenopathy Respiratory: Positive: No respiratory distress, No accessory muscle use, Wheezing Cardiovascular: Positive: RRR Musculoskeletal: Positive: ROM Intact, No Edema Neurological: Positive: Alert Psychological Exam: Normal Skin Exam: Normal Respiratory Course/Dx - Differential Dx/Diagnosis Provider Diagnosis: Acute bronchitis with bronchospasm Discharge - Sign-Out/Discharge Documenting (check all that apply): Patient Departure All imaging exams completed and their final reports reviewed: Yes - Discharge Plan Condition: Stable Disposition: HOME Prescriptions: Amoxicillin PO (*) [Amoxicillin 875 MG (*)] 875 mg PO BID #14 tab predniSONE [Deltasone 20 MG TAB] 40 mg PO DAILY #8 tab Patient Education Materials: Acute Bronchitis (ED), How to Use a Metered-Dose Inhaler and a Spacer (ED) Referrals: Marjorie Yun MD [Primary Care Provider] - 6 Days Additional Instructions: recheck for new or worsening symptoms - Billing Disposition and Condition Condition: STABLE Disposition: Home
[2019-01-16] MEDS ORDERED: predniSONE TAB* 20 MG PO ONE (18:24)
[2019-01-16] MEDS ORDERED: Albuterol HFA INHALER* 8 gm MDI INH ONE (18:24)
== END 2019-01-16 18:49 | disposition home or self-care (01) ==
LOC: UCCORT 17:04
DX: J20.9 Acute bronchitis, unspecified (principal); I10 Essential (primary) hypertension; J45.909 Unspecified asthma, uncomplicated; F17.210 Nicotine dependence, cigarettes, uncomplicated; Z79.899 Other long term (current) drug therapy; Z88.7 Allergy status to serum and vaccine; Z91.030 Bee allergy status
CPT/HCPCS: 71046; 99213; A9270-GY; G0463; J7512

== ENCOUNTER 2019-02-06 19:08 | Emergency (ER) | payer BC ==
[2019-02-06 20:06] VITALS: BP 134/82
[2019-02-06] MEDS ORDERED: Lidocaine 2% W/EPI 1:100,000* 20 ML MDV INJ ONE (20:50)
--- NOTE | 2019-02-06 20:52 | UC ---
Skin Complaint HPI - HPI Summary HPI Summary: 58 yo male with waxing and waning boil on back x mos has drained twice now red/swollen and painful no fever no n/v/d - History of Current Complaint Chief Complaint: UCSkin Time Seen by Provider: 02/06/19 20:44 Stated Complaint: ? BOIL ON BACK Hx Obtained From: Patient Onset/Duration: Gradual Onset, Lasting Weeks, Worse Since - days Timing: Constant Onset Severity: Mild Current Severity: Severe Pain Intensity: 8 Pain Scale Used: 0-10 Numeric Location: Discrete Character: Swelling, Pain, Redness, Raised Aggravating Factor(s): Touch Associated Signs & Symptoms: Positive: Tenderness. Negative: Nausea, Vomiting, Numbness, Thirst, Diaphoresis, Weakness, Pallor, Shivering, Difficulty Breathing , Fever, Chills, Cough, Wheezing, Chest Pain, Hoarseness, Throat Tightening, Rash, Abdominal Pain, Lightheadedness, Syncope, Drainage, Bruising - Allergy/Home Medications Allergies/Adverse Reactions: Allergies Allergy/AdvReac Type Severity Reaction Status Date / Time bee venom protein (honey bee) Allergy Rash Verified 02/06/19 19:57 Influenza Virus Vaccines Allergy Swelling Verified 02/06/19 19:57 Home Medications: Home Medications Amitriptyline TAB* [Elavil TAB*] 25 mg PO BEDTIME 02/06/19 [History Confirmed ] Losartan Potassium 100 mg PO DAILY 02/06/19 [History Confirmed 02/06/19] Simvastatin 20 mg PO BEDTIME 02/06/19 [History Confirmed 02/06/19] PMH/Surg Hx/FS Hx/Imm Hx Previously Healthy: Yes Endocrine History: Diabetes, Dyslipidemia Cardiovascular History: Hypertension - Surgical History Surgical History: Yes Surgery Procedure, Year, and Place: PROSTATE REMOVED. HERNIA - Family History Known Family History: Positive: Hypertension - Social History Alcohol Use: Daily Substance Use Type: None Smoking Status (MU): Heavy Every Day Tobacco Smoker Type: Cigarettes Length of Time of Smoking/Using Tobacco: 1 1/2 PPD X 30+YRS Household Exposure Type: Cigarettes Review of Systems All Other Systems Reviewed And Are Negative: Yes Constitutional: Positive: Negative Skin: Positive: Negative Eyes: Positive: Negative ENT: Positive: Negative Respiratory: Positive: Negative Cardiovascular: Positive: Negative Gastrointestinal: Positive: Negative Genitourinary: Positive: Negative Motor: Positive: Negative Neurovascular: Positive: Negative Musculoskeletal: Positive: Negative Neurological: Positive: Negative Physical Exam Triage Information Reviewed: Yes Appearance: Well-Appearing, No Pain Distress, Well-Nourished Vital Signs: Initial Vital Signs Temp 98.2 F 02/06/19 20:01 Pulse 88 02/06/19 20:01 Resp 20 02/06/19 20:01 BP 134/82 02/06/19 20:01 Pulse Ox 96 02/06/19 20:01 Vital Signs Reviewed: Yes Eyes: Positive: Conjunctiva Clear ENT: Positive: Hearing grossly normal. Negative: Nasal congestion, Nasal drainage, Trismus, Muffled voice, Hoarse voice Neck: Positive: Supple, Nontender, No Lymphadenopathy Respiratory: Positive: Lungs clear, Normal breath sounds, No respiratory distress Cardiovascular: Positive: RRR, No Murmur Neurological Exam: Normal Neurological: Positive: Alert Psychological Exam: Normal Skin Exam: Other - saee image Images Front/Back of Body, Lg ([place]): 1 - red/swollen Procedures - Procedure Summary Procedure Summary: INCISION AND DRAINAGE OF INFECTED SEBACEOUS CYST ON BACK Procedure explained Time out preformed sterile prep anesth with 2 cc of lidocaine and epi incised with 11 blade 2 cc of thin pus expressed portions of cyst wall removed culture obtained sterile dressing applied Course/Dx - Diagnoses Provider Diagnosis: Infected sebaceous cyst Discharge - Sign-Out/Discharge Documenting (check all that apply): Patient Departure All imaging exams completed and their final reports reviewed: No Studies - Discharge Plan Condition: Stable Disposition: HOME Prescriptions: DOXYcycline CAP(*) [DOXYcycline 100MG CAP(*)] 100 mg PO BID #14 cap Patient Education Materials: Cyst (ED) Referrals: Marjorie Yun MD [Primary Care Provider] - 6 Days Additional Instructions: warm compresses avoid sun exposure or wear sun screen while on doxy culture pending - Billing Disposition and Condition Condition: STABLE Disposition: Home
--- NOTE | 2019-02-08 07:11 | UC ---
- Progress Note Progress Note: wound MRSA neg STaph neg 2+ positive cocci - resemble staph - await sensitivity no change stu 02/08/19 Course/Dx - Diagnoses Provider Diagnoses: Infected sebaceous cyst Discharge - Sign-Out/Discharge Documenting (check all that apply): Post-Discharge Follow Up All imaging exams completed and their final reports reviewed: No Studies - Discharge Plan Condition: Stable Disposition: HOME Prescriptions: DOXYcycline CAP(*) [DOXYcycline 100MG CAP(*)] 100 mg PO BID #14 cap Patient Education Materials: Cyst (ED) Referrals: Marjorie Yun MD [Primary Care Provider] - 6 Days Additional Instructions: warm compresses avoid sun exposure or wear sun screen while on doxy culture pending - Billing Disposition and Condition Condition: STABLE Disposition: Home
== END 2019-02-06 21:31 | disposition home or self-care (01) ==
LOC: UCCORT 19:08
DX: L72.3 Sebaceous cyst (principal); B95.8 Unspecified staphylococcus as the cause of diseases classified elsewhere; E11.8 Type 2 diabetes mellitus with unspecified complications; Z79.84 Long term (current) use of oral hypoglycemic drugs; E78.5 Hyperlipidemia, unspecified; I10 Essential (primary) hypertension; Z88.7 Allergy status to serum and vaccine; Z91.030 Bee allergy status; F17.210 Nicotine dependence, cigarettes, uncomplicated
CPT/HCPCS: 10060; 87070; 87205; 87640; 87641; 99212; G0463

== ENCOUNTER 2019-02-11 14:50 | Emergency (ER) | payer BC ==
--- OUTSIDE RECORDS SUMMARY | 2019-02-11 15:00 | XMS REPORT | Continuity of Care Document ---
:1960 External Reference #:[id number] Author Name Lynnette Adler Care Team Providers Name Role Phone Marjorie Yun MD Care Team Information Patient Coordinator Front Desk Unavailable Marjorie Yun MD Primary Care Physician Unavailable Payers Date Identification Numbers Payment Provider Subscriber Policy Number: [id number] Cornell Sosa III PayID: [id number] [address] [address] [place] [address] Expires: 2016 Policy Number: [id number] [facility] Brenda Sosa PayID: [id number] [address] [place] [address] PayID: [id number] [facility] José Miguel Sosa III Psych/R[facility]/Eye/[facility] [address] [place] [address] Effective: 2000 Policy Number: [id number] Cornell Sosa Expires: 2013 Group Number: [id number] [address] [address] Group Name: [facility] [place] [id number] PayID: [id number] Advance Directives Description No Information Available Problems Date Description Provider Status Onset: 08/04/2017 Raised prostate specific antigen Navjot Sterling M.D. Active Onset: 09/05/2017 Malignant tumor of prostate Navjot Sterling M.D. Active Onset: 12/06/2017 Stress incontinence after Navjot Sterling M.D. Active prostatectomy Onset: 12/06/2017 Impotence of organic origin Navjot Sterling M.D. Active Family History Date Family Member(s) Observation Comments General Non Contributory Father Hypercholesterolemia Father Hypertension Mother Alive Mother Cirrhosis Social History Type Date Description Comments Sex Unknown Marital Status Patient is Home Environment Lives With daughter & son in law Diet Patient follows no dietary restrictions Occupation [employer] Work Status Currently Working Hand [employer] Right-handed Tobacco Use Start: Unknown Current Cigarette Smoker 1 1/2 Packs Daily Cigarette Use Pack Years - 30 Smokeless Tobacco Never Used Smokeless Tobacco ETOH Use Currently consumes beers on Tuesday and alcohol Tuesday ETOH Use Occasionally consumes alcohol Tobacco Use Start: Unknown Yes Recreational Drug Use Denies Drug Use Tobacco Use Start: Unknown Patient is a current 1 1/2 ppd x 30 yrs smoker, smokes every day Smoking Status Reviewed: 01/30/19 Patient is a current 1 1/2 ppd x 30 yrs smoker, smokes every day Allergies, Adverse Reactions, Alerts Date Description Reaction Status Severity Comments 10/01/2010 Bee Sting Active 10/01/2010 Flu Virus Vaccine Active cellulitis 06/23/2010 NKDA Inactive Medications Medication Date Status Form Strength Qnty SIG Indications Ordering Provider Dulcolax 01/[address] 5mg 4tabs 4 tablets K51.90 taken a Arnulfo, 8pm the MD day before the procedure Citroma 01/30 Active Solution 1.745GM/3 296ml drink 1 K51.90 Jaxson /2019 0ML bottle at , Arnulfo, 12pm (noon)the day before the procedure Suprep Bowel Prep 01/30 Active Solution 17.5-3.13 708ml one bottle K51.90 [employer] -1.6GM/17 at night , Arnulfo, 7ML and one in MD the morning Metformin HCL Active Tablets 500mg 60tab 1 po bid Unknown s Losartan Active Tablets 100mg Once a day Unknown Potassium Hydrochlorothiazi Active Tablets 25mg Once a day Unknown Amitriptyline HCL Active Tablets 100mg 1 by mouth Unknown every night at bedtime Atorvastatin Active Tablets 20mg 1 by mouth Unknown Calcium every day Sulfasalazine Active Tablets 500mg 1 po qid Omeprazole Active Capsules DR 20mg 1 by mouth Unknown every day Sildenafil 01/10 Hx Tablets 50mg 14tab 1 to 2 N52.31 Nelson, Citrate s pills as Navjot, - needed M.D. 11/27 before intercours e 12 Hour 10/26 Hx Tablets ER 120mg ;.'isab, Decongestant 12HR vira Morfin, - mayur M.D. 10/26 vira llllllnoni constantino llllllnoni llllllllsatnam llllllllll llllllllsatnam hayllllnoni cheney Ciprofloxacin HCL 08/04 Hx Tablets 500mg 6tabs 1 by mouth R97.20 Nelson , twice a Navjot, - day, start M.D. before procedure Enema 08/04 Hx Enema 7-19GM/11 133ml Morning of R97.20 Nelson, 8ML procedure. Navjot, - M.D. 08/29 Cyclobenzaprine 01/16 Hx Tablets 10mg 40tab 1 by mouth Pompo, HCL s three Teodoro, - times a M.D. 08/25 day needed for muscle spasms. use caution with alcohol, driving, working Pentasa Hx Capsules ER 250mg 2 tabs qid - 01/16 Lyrica Hx Capsules 150mg po tid - 01/16 Tramadol HCL Hx Unknown - 01/[address] 40mg 30cap 1 po qd Unknown s - 01/16 Cozaar Hx Tablets 100mg 1 po qd Unknown - 01/16 Baby Aspirin Hx Chewtabs 81mg 1 po qd Unknown - 12/14 Promethazine-Code Hx Syrup 6.25-10mg Unknown ine /5ML - 08/25 Bactrim DS Hx Tablets 800-160mg Unknown / - 08/25 Magnesium Oxide Hx Capsules 400mg Once a day Unknown - 11/27 Debrox Hx Solution 6.5% 5 drops Unknown / twice a - day x 4 10/26 days in ear only Proair HFA Hx Aerosol 108(90Bas As needed Unknown e) - mcg/Act 12/14 Duexis Hx Tablets 800-26.6m Unknown / g - 10/26 Simvastatin Hx Tablets 40mg Once a day - 12/[address] 40mg Once a day Unknown - 11/27 Amitriptyline HCL Hx Tablets 100mg Once a day Unknown - 01/10 Azulfidine Hx Tablets 500mg Once a day - 11/27 Calcium 600+D Hx Tablets 600-400mg Unknown -Unit - 12/14 Fluticasone Hx Suspension 50mcg/Act 1 spray to Unknown each nare - every day 12/14 Benzonatate Hx Capsules 200mg 1 tab by Unknown mouth - three 12/14 times day Medications Administered in Office Medication Date Status Form Strength Qnty SIG Indications Ordering Provider Methylprednisolone 01/16 Administered Injection braxton Osorio Keila (Depomedrol) 80mg S., RPAC injection Immunizations Description No Information Available Vital Signs Date Vital Result Comment 01/30/2019 9:24am BP Systolic Sitting Left Arm 120 mmHg BP Diastolic Sitting Left Arm 80 mmHg Heart Rate 79 /min Respiratory Rate 16 /min Height 72 inches 6'0" Weight 205.00 lb BMI (Body Mass Index) 27.8 kg/m2 BSA (Body Surface Area) 2.15 m2 [place] body weight in kilograms 81 kg O2 % BldC Oximetry 95 % Ra 01/04/2019 10:31am BP Systolic 151 mmHg BP Diastolic 84 mmHg Heart Rate 64 /min Height 72 inches 6'0" Weight 209.00 lb BMI (Body Mass Index) 28.3 kg/m2 BSA (Body Surface Area) 2.17 m2 [place] body weight in kilograms 81 kg O2 % BldC Oximetry 96 % 12/14/2018 1:34pm BP Systolic 141 mmHg BP Diastolic 77 mmHg Heart Rate 68 /min Height 72 inches 6'0" Weight 213.00 lb BMI (Body Mass Index) 28.9 kg/m2 BSA (Body Surface Area) 2.19 m2 [place] body weight in kilograms 81 kg O2 % BldC Oximetry 95 % 04/18/2018 3:25pm BP Systolic 122 mmHg BP Diastolic 83 mmHg Body Temperature 98.0 F Heart Rate 47 /min Respiratory Rate 18 /min Height 72 inches 6'0" Weight 202.00 lb BMI (Body Mass Index) 27.4 kg/m2 BSA (Body Surface Area) 2.14 m2 [place] body weight in kilograms 81 kg O2 % BldC Oximetry 100 % Pain Level 0 01/10/2018 3:52pm BP Systolic 118 mmHg BP Diastolic 80 mmHg Body Temperature 97.7 F Heart Rate 63 /min Respiratory Rate 18 /min Height 72 inches 6'0" Weight 213.38 lb BMI (Body Mass Index) 28.9 kg/m2 BSA (Body Surface Area) 2.19 m2 [place] body weight in kilograms 81 kg O2 % BldC Oximetry 95 % Pain Level 6 Abd pain 12/06/2017 11:03am BP Systolic 126 mmHg BP Diastolic 77 mmHg Body Temperature 97.8 F Heart Rate 62 /min Respiratory Rate 18 /min Height 72 inches 6'0" Weight 217.00 lb BMI (Body Mass Index) 29.4 kg/m2 BSA (Body Surface Area) 2.21 m2 [place] body weight in kilograms 81 kg O2 % BldC Oximetry 97 % Pain Level 0 11/09/2017 8:51am BP Systolic 128 mmHg BP Diastolic 85 mmHg Body Temperature 96.9 F Heart Rate 84 /min Respiratory Rate 18 /min Height 72 inches 6'0" Weight 206.00 lb BMI (Body Mass Index) 27.9 kg/m2 BSA (Body Surface Area) 2.16 m2 [place] body weight in kilograms 81 kg O2 % BldC Oximetry 98 % Pain Level 5 Discomfort from hawkins catheter 10/26/2017 1:44pm Height 72 inches 6'0" Weight 201.38 lb BMI (Body Mass Index) 27.3 kg/m2 BSA (Body Surface Area) 2.14 m2 [place] body weight in kilograms 81 kg 10/26/2017 1:33pm BP Systolic 126 mmHg BP Diastolic 79 mmHg Body Temperature 97.8 F 36.6C Heart Rate 76 /min Respiratory Rate 18 /min Height 72 inches 6'0" [place] body weight in kilograms 81 kg O2 % BldC Oximetry 97 % Pain Level 0 09/05/2017 3:53pm BP Systolic 123 mmHg BP Diastolic 73 mmHg Body Temperature 96.9 F Heart Rate 65 /min Respiratory Rate 16 /min Height 72 inches 6'0" Weight 202.38 lb BMI (Body Mass Index) 27.4 kg/m2 BSA (Body Surface Area) 2.14 m2 [place] body weight in kilograms 81 kg O2 [...] kg/m2 BSA (Body Surface Area) 2.15 m2 [place] body weight in kilograms 82 kg O2 % BldC Oximetry 98 % Pain Level 6 Left shoulder 08/04/2017 2:09pm BP Systolic 136 mmHg BP Diastolic 75 mmHg Body Temperature 97.0 F 36.1 Heart Rate 69 /min Respiratory Rate 22 /min Height 72.5 inches 6'0.50" Weight 204.00 lb BMI (Body Mass Index) 27.3 kg/m2 BSA (Body Surface Area) 2.16 m2 [place] body weight in kilograms 82 kg O2 [...] 1, [address] [place] [address] Antigen [phone] Laboratory test 12/06/2017 [facility] Prostate < 0.01 ng/mL < 4.0 3, [address] [place] [address] Antigen [phone] Laboratory test 11/11/2017 [facility] Prostate 0.03 ng/mL < 4.0 [address] [place] [address] Antigen [phone] Laboratory test 10/14/2017 [facility] Glucose BldC 114 mg/dL High 70- 105 finding Glucomtr-mCnc Laboratory test 10/14/2017 [facility] Glucose BldC 126 mg/dL High 70- 105 finding Glucomtr-mCnc Complete Blood 10/14/2017 [facility] WBC Num Bld 9.1 10*3/uL 4-10 Count [...] 177 10*3/uL 150-400 Basic Metabolic Panel 10/14/2017 [facility] Hco3 Ser-sCnc 26 mmol/L 22 -29 Chloride [...] MDRD-ArVRat >90 mL/min/1.73m2 >60 Laboratory test 10/14/2017 [facility] Magnesium 1.8 mg/dL 1.6-2.6 finding SerPl-mCnc Phosphate SerPl-mCnc 4.0 mg/dL 2.5-4.5 Creat Fld-mCnc 0.7 mg/dL Laboratory test 10/14/2017 [facility] Glucose BldC 143 mg/dL High 70- 105 finding Glucomtr-mCnc Laboratory test 10/13/2017 [facility] Glucose BldC 107 mg/dL High 70- 105 finding Glucomtr-mCnc Surgical Tissue 10/13/2017 [facility] Surgical Pathology Surgical 6 Patholo <SEE NOTE> Laboratory test 10/13/2017 [facility] Magnesium 1.8 mg/dL 1.6-2.6 finding SerPl-mCnc Phosphate SerPl-mCnc 4.7 mg/dL High 2.7-4.5 Basic Metabolic Panel 10/13/2017 [facility] Hco3 Ser-sCnc 21 mmol/L Low 22-29 Chloride [...] mL/min/1.73m2 >60 CBC + Diff, Plat 10/13/2017 [facility] WBC Num Bld Auto 14.5 10*3/uL High [...] Auto-Rto 0 /100{WBCs} 0-0 Laboratory test 10/13/2017 [facility] Glucose BldC 224 mg/dL High 70- 105 finding Glucomtr-mCnc Laboratory test 10/13/2017 [facility] Glucose BldC 193 mg/dL High 70- 105 finding Glucomtr-mCnc Urin Clean Catch 09/28/2017 [facility] Microorganism XXX No growth 7 Cul Cult (quali <SEE NOTE> Urinalysis 09/28/2017 [facility] Color Ur Yellow Complete Clarity Ur Clear [...] 1 /HPF 0-5 Type And Screen 09/28/2017 [facility] Abo + Rh Bld A POS 8 Bld gp Ab Scn SerPl Ql NEG Basic Metabolic Panel 09/28/2017 [facility] Hco3 Ser-sCnc 24 mmol/L 22 -29 Chloride [...] MDRD-ArVRat >90 mL/min/1.73m2 >60 Prothrombin Time 09/28/2017 [facility] Prothrombin time 11.6 s Low 12.5 -14.9 Inr PPP 0.85 Laboratory test 09/28/2017 [facility] aPTT Bld 24.9 s 24.0-34.0 finding Complete Blood Count 09/28/2017 [facility] WBC Num Bld 8.4 10*3/uL 4- 10 Auto RBC Num Bld Auto 5.58 10*6/uL 4.6-6.1 Hgb Bld-mCnc 18.0 g/dL 13.5-18 Hct VFr Bld Auto 51.6 % 41-53 MCV RBC Auto 92.4 fL 80-96 MCH RBC Qn Auto 32.2 pg 27-33 MCHC RBC Auto-mCnc 34.8 g/dL 32.0-36.0 RDW RBC Auto-Rto 13.4 % 11.5-14.5 Platelet Num Bld Auto 236 10*3/uL 150-400 Surgical 09/06/2017 [facility] Surgical Surgical 9 Pathology Consult Pathology Patholo <SEE Consult NOTE> Laboratory test 08/06/2017 [facility] Prostate 9.90 ng/mL < 4.0 10, [address] [place] [address] Antigen [phone] 1 C61 N52.31 N39.3 2 THIS ASSAY IS NOT INTENDED A CANCER SCREENING TEST The concentration of PSA in a given specimen, determined with assays from different manufacturers, can vary due to differences in assay methods and reagent specificity. Values obtained from different assay methods cannot be used interchangeably. Method: Siemens Sing Ting Delicious Axtell Chemiluminescent immunoassay. 3 C61 4 THIS ASSAY IS NOT INTENDED A CANCER SCREENING TEST The concentration of PSA in a given specimen, determined with assays from different manufacturers, can vary due to differences in assay methods and reagent specificity. Values obtained from different assay methods cannot be used interchangeably. Method: Siemens Sing Ting Delicious Axtell Chemiluminescent immunoassay. 5 THIS ASSAY IS NOT INTENDED A CANCER SCREENING TEST The concentration of PSA in a given specimen, determined with assays from different manufacturers, can vary due to differences in assay methods and reagent specificity. Values obtained from different assay methods cannot be used interchangeably. Method: Siemens Dimension Axtell Chemiluminescent immunoassay. 6 Surgical Pathology Report * [...] is based on a microscopic examination of collections representative sections of tissue. Intraoperative Consultation FSA) Bladder margin, biopsy: Fibromuscular tissue no prostatic glands identified. FSB) Apical prostatic margin, biopsy: Focal prostatic glands present. Per Dr. Hunt on 10/13/2017/ SZ//[facility] The attending pathologist named above attests that [...] labeled with the patient's name "José Miguel [place]" and "apical margin looking for prostatic glands". It consists of a fragment of red soft tissue measuring 0.3 x 0.3 x 0.2 cm. The specimen is entirely submitted for frozen as FSB1 and the frozen remainder is submitted as FSB1 and the frozen remainder in submitted in cassettes B1. /[facility] Parts C-H were received on 10/14/2017. Part C is received in formalin labeled with the patient's name "José Miguel [place]" and "anterior prostatic fat". It consists of [...] is received measuring 3.0 x 0.5 cm. [employer] sections are submitted to include a cross section of each tubular structure and collections representative of seminal vesicle in one cassette. Part [...] labeled with the patient's name "José Miguel [place]" and "prostate with seminal vesicle". It consists [...] surface. A vas deferens is not identified. [employer] sections are submitted as follows: H1 -right [...] to: H) BLADDER NECK INVASION: Not identified. /[facility] Previous Signout Date: 10/18/2017 This report may include one or more immunohistochemical stain results that use analyte specific reagents. All positive and negative controls have been reviewed by the attending pathologist and are satisfactory. The tests were developed and their performance characteristics determined by [facility] Pathology department. They have not been cleared [...] slides for second opinion. Diagnosis OUTSIDE CASE [id number], PARTS A - F, 08/29/2017. A) PROSTATE, [...] is based on a microscopic examination of collections representative sections of tissue. Gross Description Received from [facility] in [place], [place], are 12 H and E stained slides labeled [id number], with the corresponding pathology report. /jrs This report may include one or more immunohistochemical stain results that use analyte specific reagents. All positive and negative controls have been reviewed by the attending pathologist and are satisfactory. The tests were developed and their performance characteristics determined by [facility] Pathology department. They have not been cleared [...] assay methods cannot be used interchangeably. Method: [employer] Axtell Chemiluminescent immunoassay. Procedures Date Code Description Status 12/26/2018 42213 Implant Of Mesh Or Prothesis For Incisional Hernia Completed Repair 12/26/2018 51497 Repair inisial incisional or ventral hernia; reducible Completed 12/06/2017 76040 Measurement Post Voiding Residual Urine By Completed Ultrasound,Non-Imaging 12/06/2017 52481 complex uroflowmetry electronic Completed 11/09/2017 53314 Irrigation Of Bladder Completed 10/26/2017 73058 Irrigation Of Bladder Completed 09/05/2017 26384 Measurement Post Voiding Residual Urine By Completed Ultrasound,Non-Imaging 08/29/2017 33301 Biopsy Prostate Needle Or Punch Completed 07/21/2017 28814 Eye Exam New Patient Comprehensive Completed 04/21/2016 12401 Bronchospasm Provocation Evaluation Multi Spirometric Completed Determinati 04/21/2016 09629 Spirometry Completed 02/08/2016 44710 EKG Interpretation And Report Only Completed 01/16/2015 72786 Asp./Injection major joint Completed 01/16/2015 09192 xray spine cervical min 4 views Completed 01/16/2015 20622 xray spine cervical min 4 views Completed 10/27/2012 38744 Spinal Puncture Lumbar Diagnostic Completed 10/07/2010 79163 EKG Interpretation And Report Only Completed 09/18/2008 72541 Doppler ECHO Color Flow Mapping Completed 09/18/2008 22610 Doppler Echocardiogram Complete Completed 09/18/2008 71324 Echocariogram 2D Complete Completed 02/09/2008 77257145 Colonoscopy Completed 01/18/2008 12180 Doppler ECHO Color Flow Mapping Completed 01/18/2008 36489 Doppler Echocardiogram Complete Completed 01/18/2008 44930 Echocariogram 2D Complete Completed 07/07/2007 35971204 Colonoscopy Completed Encounters Type Date Location Provider Dx Diagnosis Office Visit 12/14/2018 Surgical Office Blanca Cruz3.2 Incisional hernia 1:30p Christopher H., without obstruction M.D. or gangrene Office Visit 04/18/2018 Urology Navjot Sterling, C61 Malignant neoplasm 3:45p M.D. 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 723.1 Cervicalgia Office Visit 11/05/2010 3:00p Orthopaedic Office Conor Alberto 726.10 Bursae & Tendon F.MD, FACS Disorders Shoulder Region Unspec 727.61 Ruptured Rotator Cuff Complete Office Visit 10/01/2010 Orthopaedic Dolly, 840.0 Sprains & Strains 3:15p Office Conor Dexter MD, Acromioclavicular FACS (Joint)(Ligament) 831.04 Dislocation Acromioclavicular (Joint) Closed 715.11 Osteoarthrosis Localized Prim Shoulder Region 840.6 Sprains & Strains Supraspinatus (Muscle)(Tendon) Office Visit 08/06/2010 2:30p Orthopaedic Office Conor Alberto 840.4 Sprains & F.MD, FACS Strains Rotator Cuff (Capsule) 831.04 Dislocation Acromioclavicular (Joint) Closed 715.11 Osteoarthrosis Localized Prim Shoulder Region 840.9 Sprains & Strains Shoulder & Upper Arm Unspec Office Visit 06/25/2010 1:45p Orthopaedic Office Conor Alberto 840.9 Sprains & FMD Ledy, FACS Strains Shoulder & Upper Arm Unspec 831.04 Dislocation Acromioclavicular (Joint) Closed 923.00 Contusion Shoulder Region Office Visit 05/14/2010 Orthopaedic Dolly 831.04 Dislocation 1:15p Office Conor Dexter MD, Acromioclavicular FACS (Joint) Closed 840.9 Sprains & Strains Shoulder & Upper Arm Unspec 844.1 Sprains & Strains Knee Medial Collateral Ligament E881.0 Fall From Ladder Plan of Treatment Future Appointment(s):04/26/2019 2:00 pm - Arnulfo Puri MD at GI01/30/2019 - Arnulfo Puri MDK51.90 Ulcerative colitis, unspecified, without complicationsNew Medication:Dulcolax 5 mg - 4 tablets taken a 8pm the day before the procedureCitroma 1.745 GM/30ML - drink 1 bottle at 12pm (noon)the day before the procedureSuprep Bowel Prep Kit 17.5-3.13-1.6 GM/177ML - one bottle at night and one in the morningComments:surveillance last done 11 years ago continue sulfasalazine
[2019-02-11 15:37] VITALS: BP 171/83
[2019-02-11 16:27] LABS: Influenza A Molecular POSITIVE (Negative)
--- NOTE | 2019-02-11 16:29 | UC ---
FLU HPI - HPI Summary HPI Summary: 58-year-old male presents with complaints of fever, chills, general malaise, body aches, fatigue, nasal congestion, sore throat, and a dry nonproductive cough. History of COPD. states has had some mild shortness of breath but no wheezing. States has been using his inhalers as prescribed. Patient is allergic to the flu vaccine therefore was not vaccinated this year. Patient was seen here on 02/06/2019 for an abscess to his lower back and was started on doxycycline. He states that this has been improving however he has not taken his doxycycline the last couple of days because he has not been feeling well. His culture was reviewed and grew out Finegoldia magna. Denies ear pain, dysphagia, chest pain, abdominal pain, nausea, vomiting, or diarrhea. - History of Current Complaint Chief Complaint: UCRespiratory Stated Complaint: FLU SYMPTOMS Time Seen by Provider: 02/11/19 16:13 Hx Obtained From: Patient Pain Intensity: 8 - Allergy/Home Medications Allergies/Adverse Reactions: Allergies Allergy/AdvReac Type Severity Reaction Status Date / Time bee venom protein (honey bee) Allergy Rash Verified 02/11/19 15:38 Influenza Virus Vaccines Allergy Swelling Verified 02/11/19 15:38 PMH/Surg Hx/FS Hx/Imm Hx Endocrine History: Diabetes, Dyslipidemia Cardiovascular History: Hypertension GI/ History: Gastroesophageal Reflux Psychological History: Depression - Surgical History Surgical History: Yes Surgery Procedure, Year, and Place: PROSTATE REMOVED. HERNIA - Family History Known Family History: Positive: Hypertension - Social History Occupation: Employed Full-time Lives: With Family Alcohol Use: Daily Alcohol Amount: 3 beers daily Substance Use Type: None Smoking Status (MU): Heavy Every Day Tobacco Smoker Type: Cigarettes Amount Used/How Often: 1 1/2 ppd Length of Time of Smoking/Using Tobacco: 40+YRS Household Exposure Type: Cigarettes Review of Systems All Other Systems Reviewed And Are Negative: Yes Constitutional: Positive: Fever, Chills, Fatigue Skin: Negative: Rash Eyes: Negative: Drainage, Eye Redness ENT: Positive: Sore Throat, Nasal Discharge, Sinus Congestion. Negative: Ear Ache, Sinus Pain/Tenderness Respiratory: Positive: Shortness Of Breath, Cough Cardiovascular: Negative: Palpitations, Chest Pain Gastrointestinal: Negative: Abdominal Pain, Vomiting, Diarrhea, Nausea Genitourinary: Positive: Negative Neurovascular: Positive: Negative Musculoskeletal: Positive: Myalgia Neurological: Positive: Negative Is Patient Immunocompromised?: No Physical Exam - Summary Physical Exam Summary: GENERAL APPEARANCE: Well developed, well nourished, alert and cooperative, and appears to be in no acute distress. EYES: Conjunctiva clear. No drainage. PERRL, EOM intact. Vision is grossly intact. EARS: External auditory canals and tympanic membranes clear, hearing grossly intact. NOSE: Mild-moderate nasal congestion. Clear nasal drainage. THROAT: Pharyngeal erythema. No tonsilar inflammation, swelling, exudate, or lesions. Uvula midline. Oral cavity normal. Teeth and gingiva in good general condition. NECK: Neck supple, non-tender without lymphadenopathy. CARDIAC: Normal S1 and S2. No S3, S4 or murmurs. Rhythm is regular. There is no peripheral edema, cyanosis or pallor. Extremities are warm and well perfused. Capillary refill is less than 2 seconds. Peripheral pulses intact. LUNGS: Clear to auscultation without rales, rhonchi, wheezing or diminished breath sounds. Dry, non-productive cough. ABDOMEN: Positive bowel sounds. Soft, nondistended, nontender. No guarding or rebound. No masses or hepatosplenomegally. MUSKULOSKELETAL: ROM intact to all extremities. No joint erythema or tenderness. Normal muscular development. Normal gait. SKIN: 2.5 cm are of induration to his right lower back without fluctuance or drainage. No tenderness or increased warmth. Triage Information Reviewed: Yes Vital Signs: Initial Vital Signs Temp 98.9 F 02/11/19 15:30 Pulse 85 02/11/19 15:30 Resp 24 02/11/19 15:30 BP 171/83 02/11/19 15:30 Pulse Ox 96 02/11/19 15:30 Vital Signs Reviewed: Yes Flu Course/Dx - Course Course Of Treatment: 58-year-old male presents with complaints of fever, chills, general malaise, body aches, fatigue, nasal congestion, sore throat, and a dry nonproductive cough. History of COPD. states has had some mild shortness of breath but no wheezing. States has been using his inhalers as prescribed. Patient is allergic to the flu vaccine therefore was not vaccinated this year. Patient was seen here on 02/06/2019 for an abscess to his lower back and was started on doxycycline. He states that this has been improving however he has not taken his doxycycline the last couple of days because he has not been feeling well. His culture was reviewed and grew out Finegoldia magna. Denies ear pain, dysphagia, chest pain, abdominal pain, nausea, vomiting, or diarrhea. Afebrile. Hypertensive but otherwise vital signs are stable. He did not take his blood pressure medications today either. Exam was remarkable for nasal congestion, clear nasal discharge, pharyngeal erythema, clear bilateral breath sounds, and a dry nonproductive cough. Rapid flu test was positive for influenza A. I'm recommending symptomatic treatment for the flu. He is to continue to use his inhalers as prescribed. I have also given him a prescription for Tessalon Perles to use as needed for cough. I have recommended that he complete his course of doxycycline. I have encouraged him to follow up with his primary care provider in 3-5 days for recheck of his flu symptoms as well as a recheck of the abscess. Anticipatory guidance and warning symptoms are reviewed with the patient. Verbalizes understanding and agrees with plan of care. - Differential Dx/Diagnosis Differential Diagnosis/HQI/PQRI: Bronchitis, Influenza, Pneumonia, Upper Respiratory Infection Provider Diagnosis: Influenza A Discharge - Sign-Out/Discharge Documenting (check all that apply): Patient Departure All imaging exams completed and their final reports reviewed: No Studies - Discharge Plan Condition: Stable Disposition: HOME Prescriptions: Benzonatate CAP* [Tessalon 100 MG CAP*] 100 mg PO TID PRN #30 cap PRN Reason: Cough Patient Education Materials: Influenza (ED), Abscess (ED) Referrals: Marjorie Yun MD [Primary Care Provider] - 3 Days (Call tomorrow for an appointment in 3-5 days) Additional Instructions: Your flu test in the clinic today was positive for influenza A. Get plenty of rest. Drink plenty of fluids to avoid dehydration especially if you are running any fever. Take over the counter acetaminophen (Tylenol) or ibuprofen (Advil, Motrin) according to directions as needed for pain or fever. Take Tessalon Perles 1 cap every 8 hours as needed for cough. Use salt water gargles several times a day if you have a sore throat. You may also use Chloraseptic spray or Cepacol lonzenges according to directions which contain a numbing medication and can provide some temporary relief from your sore throat. The wound culture from the incision and drainage of your abscess the other day grew out an organism called Finegoldia magna. Since the abscess is improving it is important that you finish the doxycycline that was prescribed to you. Once completed have it rechecked as you may need a longer course or switch to another antibiotic if not fully resolved. Follow up with your primary care provider in 3-5 days for recheck of symptoms. Call tomorrow for an appointment. Seek immediate medical attention in the emergency room if you have fever greater than 100.5 F despite taking acetaminophen or ibuprofen, have chest pain , difficulty breathing, are unable to swallow, or have any worsening of symptoms. - Billing Disposition and Condition Condition: STABLE Disposition: Home
== END 2019-02-11 16:56 | disposition home or self-care (01) ==
LOC: UCCORT 14:50
DX: J11.1 Influenza due to unidentified influenza virus with other respiratory manifestations (principal); I10 Essential (primary) hypertension; E11.9 Type 2 diabetes mellitus without complications; E78.5 Hyperlipidemia, unspecified; K21.9 Gastro-esophageal reflux disease without esophagitis; F32.9 Major depressive disorder, single episode, unspecified; F17.210 Nicotine dependence, cigarettes, uncomplicated; Z88.7 Allergy status to serum and vaccine
CPT/HCPCS: 99212; G0463